=== PATIENT | male | born 1945 | race Caucasian/White ===

== ENCOUNTER 2024-09-12 06:02 | Emergency (ER) | payer MEDICARE, OTHER, SELFPAY ==
[2024-09-12] VITALS (14 sets, daily range): BP systolic 105–155; BP diastolic 63–95; BMI 24.6
[2024-09-12 07:59] LABS: % Basophils 0.6 % (0-2); % Eosinophils 0.9 % (0-6); % Immature Granulocytes 0.3 % (0-0.5); % Neutrophils 64.2 % (42.2-75.2); Absolute Eosinophils 0.1 10^3/uL (0-0.7); Absolute Lymphocytes 1.5 10^3/uL (1.2-3.4); Absolute Monocytes 0.7 10^3/uL (0.1-0.6); Absolute Neutrophils 4.1 10^3/uL (1.4-6.5); Hematocrit 43.9 % (39.0-52.0); Hemoglobin 14.6 g/dL (13.0-18.0); Mean Corp Hgb Conc. 33.3 g/dL (33.0-37.0); Mean Corpuscular Hgb 29.9 pg (27.0-31.0); Mean Corpuscular Volume 89.8 fL (80.0-94.0); Mean Platelet Volume 10.5 fL (7.4-10.4); Nucleated Red Blood Cells % 0 % (-); Platelet Count 166 10^3/uL (130-400); Red Blood Cell Count 4.89 10^6/uL (4.70-6.10); Red Cell Dist. Width 12.5 % (11.5-14.5); White Blood Cell Count 6.4 10^3/uL (4.8-10.8)
--- NOTE | 2024-09-12 08:10 | ED.GENMED ---
History of Present Illness
<Merly Alexander HEAD INSPECTOR AND CENTER MARKER - Last Filed: 09/12/24 16:48>
General
Chief Complaint: Heart Rate Problem
Source: patient
Exam Limitations: none
Time Seen by Provider: 09/12/24 08:04
Nursing documentation reviewed up to this point in time: agreed with
History of Present Illness
History of Present Illness:
78-year-old male with history HTN presents for 'irregular heart beat and fast beating.' [place] 'off' last night 10 p.m. pulse was fast for about an hour then back to normal so went to bed. This 5 a.m. same symptoms. Denies CP, denies SOB. Feels a
little lightheaded. Had one episode nausea and vomiting on 09/09. Has had several episodes non bloody diarrhea past 24 hours, last was 30 minutes ago, small amount. Denies abdominal pain.
Had a fib about 10 yrs ago was on Xarelto but has not been on it for years. Was followed by Dr. Tito Raygoza.
Past History
<Merly Alexander, HEAD INSPECTOR AND CENTER MARKER - Last Filed: 09/12/24 16:48>
Past History
ED Past Medical History: Arrthythmia (remote hx afib, no longer on anticoagulant) and HTN
ED Past Surgical History: Orthopedic
Social History
Tobacco: Non-smoker
Alcohol: Occasional
Drug: None
Personal:
Living: with family
Employment: Retired
Family History
Family History: Hypertension
Review of Systems
<Merly Alexander HEAD INSPECTOR AND CENTER MARKER - Last Filed: 09/12/24 16:48>
Review of Systems
Allergies reviewed?: Yes
All Other Systems: ROS reviewed and negative except as documented in HPI and ROS
Constitutional: Reports fatigue; Denies fever
Respiratory: Denies trouble breathing
Cardiac: Denies chest pain, diaphoresis or palpitations
ABD/GI: Reports diarrhea; Denies abdominal pain, nausea, vomiting, bloody stools or black stools
: Denies dysuria or difficulty voiding
Musculoskeletal: Reports no symptoms
Skin: Reports no symptoms
Neurological: Reports no symptoms
Phy Exam
<Merly Alexander, HEAD INSPECTOR AND CENTER MARKER - Last Filed: 09/12/24 16:48>
Physical Exam
Physical Exam:
GENERAL: No acute distress. A&Ox3.
CONSTITUTIONAL: Afebrile.
EYES: clear, conjunctivae normal
ENMT: moist mucus membranes, Pharynx nl
RESPIRATORY: Regular respirations, nonlabored, lungs clear.
CARDIOVASCULAR: Irregular rate and rhythm, no murmurs, no rubs.
GI: Soft, nontender, normal BS
MUSCULOSKELETAL: Moves with ease. Well perfused.
SKIN: Warm, dry, pink
PSYCH: Normal mood and affect. Well kept, interactive and appropriate
NEUROLOGIC: Awake, alert and oriented. No focal neurological deficits
Course
<Merly Alexander, HEAD INSPECTOR AND CENTER MARKER - Last Filed: 09/12/24 16:48>
Orders/Labs/Results
Orders:
Orders
09/12/24 06:06
Electrocardiogram (*1) Urgent
Reason for Study: Atrial Fibrillation
09/12/24 06:07
EKG- Treatment ONCE
09/12/24 07:48
CMP [Comprehensive Metabolic Panel] Urgent
Complete Blood Count/With Diff Urgent
TSH Reflex To Free T4 Urgent
Comment: ADD ON
09/12/24 07:57
Add On- LAB Urgent
Tests Added?: TSH reflex to free T4
09/12/24 08:23
Troponin I Urgent
09/12/24 08:25
Diltiazem HCl [Cardizem] 20 mg IV NOW STA
09/12/24 08:28
Diltiazem 125 mg/125 ml Nss [Cardizem] 125 mg in 125 ml IV NOW
Initial dose in mg/hr, then titrate:: 5
Titrate to keep:: Heart rate 80-100 bpm
Titrate by mg/hr:: 5 mg/hr
Frequency of titrations (minutes):: 15
Maximum dose in mg/hr:: 15
09/12/24 12:22
Electrocardiogram (*1) Urgent
Reason for Study: Palpitations
EKG- Treatment ONCE
09/12/24 13:21
Apixaban [Eliquis] 10 mg PO NOW STA
Abnormal Lab Results
09/12/24
07:48
MPV 10.5 H fL
(7.4-10.4)
Absolute Monos (auto) 0.7 H 10^3/uL
(0.1-0.6)
Monocytes % 11.0 H %
(1.7-9.3)
Glucose 124 H mg/dl
(70-99)
09/12/24 07:48
09/12/24 07:48
Vital Signs
Initial and Last Documented VS:
Initial Vital Signs
Temp Pulse Resp BP Pulse Ox
97.8 F 156 22 155/94 97
09/12/24 06:10 09/12/24 06:10 09/12/24 06:10 09/12/24 06:10 09/12/24 06:10
Last Documented Vital Signs
Temp Pulse Resp BP Pulse Ox
97.8 F 58 11 105/67 96
09/12/24 06:10 09/12/24 13:00 09/12/24 13:00 09/12/24 13:00 09/12/24 13:00
Material Handler Floorperson consulted with Physician
Material Handler Floorperson consulted with physician?: Yes
Name of Physician Consulted: Gaby
<Magan Benitez, DO - Last Filed: 09/12/24 18:04>
Orders/Labs/Results
Orders:
Orders
09/12/24 06:06
Electrocardiogram (*1) Urgent
Reason for Study: Atrial Fibrillation
09/12/24 06:07
EKG- Treatment ONCE
09/12/24 07:48
CMP [Comprehensive Metabolic Panel] Urgent
Complete Blood Count/With Diff Urgent
TSH Reflex To Free T4 Urgent
Comment: ADD ON
09/12/24 07:57
Add On- LAB Urgent
Tests Added?: TSH reflex to free T4
09/12/24 08:23
Troponin I Urgent
09/12/24 08:25
Diltiazem HCl [Cardizem] 20 mg IV NOW STA
09/12/24 08:28
Diltiazem 125 mg/125 ml Nss [Cardizem] 125 mg in 125 ml IV NOW
Initial dose in mg/hr, then titrate:: 5
Titrate to keep:: Heart rate 80-100 bpm
Titrate by mg/hr:: 5 mg/hr
Frequency of titrations (minutes):: 15
Maximum dose in mg/hr:: 15
09/12/24 12:22
Electrocardiogram (*1) Urgent
Reason for Study: Palpitations
EKG- Treatment ONCE
09/12/24 13:21
Apixaban [Eliquis] 10 mg PO NOW STA
Abnormal Lab Results
09/12/24
07:48
MPV 10.5 H fL
(7.4-10.4)
Absolute Monos (auto) 0.7 H 10^3/uL
(0.1-0.6)
Monocytes % 11.0 H %
(1.7-9.3)
Glucose 124 H mg/dl
(70-99)
09/12/24 07:48
09/12/24 07:48
Vital Signs
Initial and Last Documented VS:
Initial Vital Signs
Temp Pulse Resp BP Pulse Ox
97.8 F 156 22 155/94 97
09/12/24 06:10 09/12/24 06:10 09/12/24 06:10 09/12/24 06:10 09/12/24 06:10
Last Documented Vital Signs
Temp Pulse Resp BP Pulse Ox
97.8 F 58 11 105/67 96
09/12/24 06:10 09/12/24 13:00 09/12/24 13:00 09/12/24 13:00 09/12/24 13:00
<Merly Saldaña Day, HEAD INSPECTOR AND CENTER MARKER - Last Filed: 09/12/24 16:48>
MDM/Problems Addressed
Differential Diagnosis Includes:
Afib RVR, IL, thyroid disorder, metabolic disorder
MDM/Problems Addressed:
78-year-old male with history HTN presents for 'irregular heart beat and fast beating.' [place] 'off' last night 10 p.m. pulse was fast for about an hour then back to normal so went to bed. This 5 a.m. same symptoms. Denies CP, denies SOB. Feels a
little lightheaded. Had one episode nausea and vomiting on 09/09. Has had several episodes non bloody diarrhea past 24 hours, last was 30 minutes ago, small amount. Denies abdominal pain.
Had a fib 2011, was on Xarelto but has not been on it for years. Was followed by Dr. Tito Raygoza. Had loop recorder inserted 2012, later removed 2013
Afebrile, NAD
HR 130's to 150's, a fib on bedside monitor
EKG: a flutter 2:1 block HR 148
Hemodynamically stable.
9:00 a.m.
After Diltiazem 20 mg IV, HR 90's-130 BP Pt taking his own Metoprolol 50 mg now
9:40 a.m
HR remains 130-140s. Cardizem drip started
Case discussed with Dr. Benitez
10:30 a.m.
Maxxed out on Cardizem, HR up to 130's frequently.
11L[address] Benitez in to examine.
Agrees with admit for afib w RVR unknown onset
Hospitalist notified of admission
12:30 p.m.
Pt converted to NSR. Will start Eliquis, Dr. Javier notified and pt will f/u with [facility]
Pt stable for discharge
Chronic conditions affecting care: HTN and Arrhythmia (afib)
<Merly Alexander, HEAD INSPECTOR AND CENTER MARKER - Last Filed: 09/12/24 16:48>
*Critical Care Note
Total Time (30-74mins, 75-104mins- exclusive of procedures): Not Applicable
<Magan Benitez, DO - Last Filed: 09/12/24 18:04>
*Critical Care Note
Total Time (30-74mins, 75-104mins- exclusive of procedures): 40 minutes
ED Attending Note
<Merly Alexander, HEAD INSPECTOR AND CENTER MARKER - Last Filed: 09/12/24 16:48>
-
Portions of this chart may have been created with voice recognition software.� Occasional wrong word or��sound alike� substitutions may have occurred due to the inherent limitations of voice recognition software.
<Magan Benitez DO - Last Filed: 09/12/24 18:04>
ED Attending Note
Patient seen and examined by attending physician: Yes
I performed the substantive portion of visit, reviewed & personally made and approve the management plan that is documented in note by myself or MARKIE.: Yes
ED Attending Note:
78-year-old male presents with A-fib. History as above. On my assessment he was tachycardic and irregular. After extended periods observation on Cardizem patient did convert on his own. Lengthy discussion with the patient and I do feel he safe
for discharge with the plan to restart Eliquis. Case discussed with Dr. Javier. He will arrange outpatient follow-up
Discharge Plan
Departure
Patient Disposition: Home (Routine Discharge)
Date of Disposition: 09/12/24
Time of Disposition: 13:17
Patient with high blood pressure during this ER visit?: No
Condition: Fair
Discharge Problem:
Atrial fibrillation with rapid ventricular response
Instructions: Atrial Fibrillation (DC), Apixaban
Prescriptions:
New
Eliquis 5 mg tablet
5 mg PO BID Qty: 70 0RF
Rx Instructions:
Take 10 mg twice a day for 7 days then take 5 mg twice a day until further instructed
No Action
losartan 100 MG tablet
100 mg PO DAILY
tadalafil [Cialis] 10 MG tablet
10 mg PO DAILYPRN PRN (Reason: ed)
metoprolol succinate 50 MG tablet extended release 24 hr
25 mg PO BID
Medical Marijuana
2 puff inhalation DAILYPRN PRN (Reason: mild pain)
aspirin 81 mg Tablet,Delayed Release (Dr/Ec)
81 mg PO DAILY
amlodipine [Norvasc] 10 mg Tablet
10 mg PO DAILY
loratadine 10 mg Tablet
10 mg PO DAILYPRN PRN (Reason: allergies)
Referrals:
Vimal Javier MD [Active] - Call in 1-3 days for appt
UNKNOWN - PT NOT,INTERVIEWE [Unknown Provider] -
Activity Restrictions/Additional Instructions:
As we discussed, I sent a prescription to your pharmacy for Eliquis. You were given a dose here today, take a second dose tonight before bed.
Call Dr. Javier's office tomorrow morning and make next available appointment.
We have notified Dr. Javier who will let office staff know.
Return here immediately for chest pain, trouble breathing, rapid heart rate with dizziness, lightheaded or feeling sicker in any way.
Interventions
Interventions:
*Risk Screen - Suicide Last Done: 09/12/24 06:07
*General Assessment Last Done: 09/12/24 07:54
*Neglect/Abuse Screening Last Done: 09/12/24 06:07
ED- Fall Risk Assessment Last Done: 09/12/24 07:54
*ED COVID-19 Vaccine History Last Done: 09/12/24 09:12
*Nursing Disposition Last Done: 09/12/24 13:33
ED- Cardiac Assessment Last Done: 09/12/24 07:54
ED- Pulmonary Assessment Last Done: 09/12/24 07:54
Discharge Date and Time
Discharge Date/Time: 09/12/24 13:34
Print Language: BULGARIAN
[2024-09-12 08:12] LABS: ALT (SGPT) 49 U/L (0-50); AST (SGOT) 44 U/L (17-59); Albumin 4.1 g/dl (3.5-5.0); Alkaline Phosphatase 122 U/L (38-126); Blood Urea Nitrogen 16 mg/dl (9-20); Carbon Dioxide 25 mmol/L (22-30); Chloride 105 mmol/L (98-107); Estimated Creatinine Clearance 86 ml/min; Glucose 124 mg/dl (70-99); Potassium 3.9 mmol/L (3.5-5.1); Sodium 138 mmol/L (135-145); Total Bilirubin 0.4 mg/dl (0.2-1.3); Total Protein 6.9 g/dl (6.3-8.2); eGFR > 60.00
[2024-09-12] MEDS: CARDIZEM 20 MG IV (08:34)
[2024-09-12 08:56] LABS: Troponin I < 0.012 ng/ml
[2024-09-12] MEDS: CARDIZEM 125 IV (09:33)
[2024-09-12 09:47] LABS: TSH Reflex To Free T4 3.25 uIU/ml (0.47-4.68)
[2024-09-12] MEDS: ELIQUIS 10 MG PO (13:24)
== END 2024-09-12 13:34 | disposition home or self-care (01) ==
LOC: EMR 06:02
PROVIDERS: Registered Nurse; Student in an Organized Health Care Education/Training Program; EMERGENCY PHYSICIAN Emergency Medicine; FAMILY PHYSICIAN Family Medicine
DX: I48.91 Unspecified atrial fibrillation (principal); I10 Essential (primary) hypertension
CPT/HCPCS: 99291; 96374; 80053; 84443; 84484; 85025; 93005

== ENCOUNTER → 2024-09-24 07:57 | Outpatient (REF) | payer MEDICARE, OTHER, SELFPAY | LOC: HWRCS 07:57 | PROVIDERS: ATTENDING PHYSICIAN Internal Medicine Cardiovascular Disease; FAMILY PHYSICIAN Family Medicine | DX: I48.0 Paroxysmal atrial fibrillation (principal) | CPT/HCPCS: 93306 ==

== ENCOUNTER 2024-10-11 07:52 | Day surgery (SDC) | payer MEDICARE, OTHER, SELFPAY ==
[2024-10-04 08:08] VITALS: BMI 24.4
[2024-10-11] VITALS (10 sets, daily range): BP systolic 114–157; BP diastolic 60–80; BMI 23.8
--- NOTE | 2024-10-11 10:41 | ITS.CL.ABL ---
Team Automobile Assembler - Ablation
Ablation
Procedure Report:
ELECTROPHYSIOLOGIC STUDY AND POSSIBLE ABLATION
DATE: October 11, 2024
Primary Care Provider: Dr. Jeanette Newman
INDICATION:
Symptomatic Atrial Fibrillation, as well as typical right atrial flutter, paroxysmal
HISTORY: See H and P.
Symptomatic AF, poorly controlled with attempted medical therapy
HAS-BLED: 1
Age
CHADSVASc: 3
HTN
Age
PRESENTING RHYTHM: SR
HISTORY: See H and P.
Symptomatic AF, poorly controlled with attempted medical therapy.
ANTICOAGULATION: Eliquis
'TIME-OUT': called and confirmed.
SEDATION/ANESTHESIA: provided via the anesthesia department using general anesthesia.
PROCEDURE:
Ultrasound Guidance with real-time visualization of needle insertion and vessel patency performed by ga for femoral venous Vascular Access. Images were taken and saved for the patient's permanent record. Imaging findings typical femoral venous
anatomy. Direct visualization of needle puncture into the femoral vein was observed and recorded.
A decapolar CS catheter was placed within the CS for mapping and pacing.
The intracardiac ultrasound catheter was positioned in the RA for continuous intracardiac ultrasound imaging.
Heparin bolus and infusion to target ACT at 300 -350 seconds was administered. Transseptal puncture was performed. This entailed advancing a sheath with dilator into the superior vena cava and withdrawing both (monitoring intracardiac ultrasound,
fluoroscopy and tip pressure) with the tip oriented toward the atrial septum. The fossa ovalis was engaged (indicated by sudden displacement of the sheath tip as well as tenting of the fossa seen on intracardiac ultrasound).
Transseptal puncture was performed. Left atrial catheter position was confirmed by echocardiographic imaging, pressure monitoring (LA mean [id number] mm Hg) and fluoroscopy. The sheath was advanced over the dilator and positioned in the left
atrium.
The Wizperta multipolar mapping/ablation Sphere-9 catheter was positioned through the transseptal sheath for high density mapping.
Geometry and voltage mapping was performed using the W[employer]perta mapping system for three-dimensional electroanatomical mapping.
Catheter positioning was guided and confirmed using both I.C.E. and fluoroscopy.
PV isolation approach was used to electrically isolate each PV ostia (LSPV, LIPV, RSPV, RIPV).
Additional energy applications/additional ablation set was required to accomplish wide area circumferential ablation around each of the pulmonary vein sets.
Remapping with the Sphere-9 catheter found that all PVPs were eliminated at each vein demonstrating entrance block. Also pacing around the the circumference of the ostia was performed at 10 ma and 2.0 msec output to assess for exit block. This
demonstrated electrical isolation at each of the pulmonary vein ostia (LSPV, LIPV, RSPV, RIPV). There is also entrance and exit block at the LA posterior wall.
Programmed electrostimulation (burst atrial pacing down to atrial ERP and the delivery of atrial decremental extrastimuli down to atrial ERP) failed to induce any sustained arrhythmias.
Catheter was withdrawn from the left atrium into the right atrium where electroanatomical mapping was undertaken.
While navigating the catheter in the right atrium, atrial fibrillation ensued and sinus rhythm was restored with cardioversion. Atrial fibrillation was felt to be a mechanical manifestation of catheter manipulation within the left atrium. There is
known history of typical atrial flutter with documented EKGs. Given this, ablation was performed to create block at the cavotricuspid isthmus. This involved delivery of radiofrequency lesions close to the tricuspid valve and pulsed electric field
lesions further back down to the IVC to create a line of block at approximately 6:00 in the RAFFY 30 degree position at the CTI. CTI block was proven by activation mapping as well as differential pacing from both sides of the line.
I.C.E. :
Pre-Ablation Post-Ablation
LVEF: 55 % 55 %
WMA: none none
Pericardial effusion: none none
COMPLICATIONS:
None
SUMMARY:
- Mapping and ablation to isolate the PVs
- Additional AF ablation set after PVI.
- Mapping and ablation of second tachycardia
- 3-D Electroanatomical Mapping
- Intracardiac Ultrasound
- Ultrasound guidance for vascular access
Post ablation, I discussed today's findings and results with the patient's , Jacinda.
RECOMMENDATIONS:
- Observe in monitored bed.
- Maintain oral anticoagulation.
- Continue metoprolol succinate 25 mg twice daily
- Office visit with me in 4 months
Copy to:
Dr. Jeanette Newman
[2024-10-11 11:14] LABS: ACT-LR - POC 360 Seconds (116-155)
[2024-10-11 11:29] LABS: ACT-LR - POC 276 Seconds (116-155)
[2024-10-11] MEDS: ANESTHETIC LOZENGE 1 LOZENGE PO (13:12)
--- NOTE | 2024-10-11 14:29 | W.PN.UPDATE ---
Update Note
Progress Note Update
Pt seen post PFA. Right groin site with vascade closure, no ht/bleeding, non tender. OOB ambulating, urinating without difficulty. Post EKG NSR 70s, no acute changes. Resume eliquis tonight at usual time- pt rx had run out and refill rx was sent to
his [facility] pharmacy. Continue other meds as before. Followup at [facility] as scheduled. Home later today if groin site/tele remain stable.
== END 2024-10-11 15:05 | disposition home or self-care (01) ==
LOC: CATH 07:52
PROVIDERS: ATTENDING PHYSICIAN Internal Medicine Cardiovascular Disease; FAMILY PHYSICIAN Family Medicine
DX: I48.3 Typical atrial flutter (principal); I48.0 Paroxysmal atrial fibrillation; I10 Essential (primary) hypertension; Z79.01 Long term (current) use of anticoagulants; Z79.899 Other long term (current) drug therapy
CPT/HCPCS: C1894; C1766; C1730; C1892; C1733; 76937; 85347; 86900; 86901; 93005; 93655; 93656; 93657; C1760